=== PATIENT | male | born 1965 | race Caucasian/White ===

== ENCOUNTER → 2017-08-08 | Outpatient (CLI) | payer BC ==
--- NOTE | 2017-08-08 13:48 | PCVCIMAG ---
APPROVED REPORT Exam: Stress Echocardiogram Indication: Chest pain, Fam hx CAD, early repolarization EKG Patient Location: Echo lab Stress Nurse: Lesia Chavez RN Status: routine Ht: 6 ft 0 in HR: 88 bpm BP: 120/82 mmHg Rhythm: NSR Procedure The patient underwent an Exercise Stress Test using the Manish Protocol. Blood pressure, heart rate, and EKG were monitored. An Echocardiogram was performed by electronic organ technician in four stages in quad fashion. At peak stress, four selected images were obtained and placed side by side with resting images for comparison. Stress Test Details Stress Test: Exercise stress testing was performed using a Manish protocol. HR Resting HR: 88 bpmMax Heart Rate (APMHR): 167 bpm Max HR Achieved: 164 bpmTarget HR (85% APMHR): 141 bpm % of APMHR: 98 Recovery HR: 83 bpm HR response to stress: Normal HR response to stress BP Resting BP: 120/82 mmHg Max BP: 164/78 mmHg Recovery BP: 124/68 mmHg ECG Resting ECG: Sinus Rhythm Stress ECG: Sinus Rhythm ST Change: Normal Arrhythmia: isolated PVCs rarely Recovery ECG: Sinus Rhythm Recovery ST Change: Normal Recovery Arrhythmia: occasional PACs Clinical Reason for Termination: Maximal effort Exercise duration: 14 min 18 sec Highest Stage Achieved: Stage 5: 5.0 mph at 18% grade. Exercise capacity: 17.5 METs Overall Exercise Capacity for Age: Good Scale: Active Angina Score: None Pre-Stress Echo The resting Echocardiogram showed normal left ventricular contractility with an estimated Ejection Fraction of about %. Normal wall motion in all segments on baseline images. Post-Stress Echo The stress Echocardiogram showed normal left ventricular contractility with an estimated Ejection Fraction of about %. Normal augmentation of wall motion in all segments on post stress images. Clinical No clinical or ECG evidence for ischemia. Conclusion Clinical Response: Non-ischemic Exercise Capacity: Superior Stress ECG Response: Non-ischemic Stress Echo Images: Non-ischemic The left ventricle is normal in size and wall thickness in both the rest and stress images. Other Information Study Quality: Adequate <Conclusion> The left ventricle is normal in size and wall thickness in both the rest and stress images.
== END | disposition home or self-care (01) ==
LOC: PCVCIMAG 11:31
PROVIDERS: ATTEND Internal Medicine Cardiovascular Disease
DX: R07.9 Chest pain, unspecified (principal); E78.5 Hyperlipidemia, unspecified; R00.2 Palpitations; Z82.49 Family history of ischemic heart disease and other diseases of the circulatory system
CPT/HCPCS: 93325; 93351

== ENCOUNTER → 2019-01-13 | Outpatient (CLI) | payer BC ==
--- NOTE | 2019-01-14 09:47 | PCVCIMAG ---
APPROVED REPORT Study performed: 01/13/2019 14:52:18 EXAM: Comprehensive 2D, Doppler, and color-flow Echocardiogram Patient Location: Echo lab Status: routine BSA: 2.08 HR: 73 bpmBP: 132/86 mmHg Rhythm: Atrial Fibrillation Other Information Study Quality: Adequate Indications Atrial Fibrillation Palpitations 2D Dimensions IVSd: 10.46 (7-11mm) LVDd: 47.19 mm PWd: 11.03 (7-11mm)Ascending Ao: 30.96 (22-36mm) LVDs: 34.15 (25-40mm) Left Atrium: 45.94 (27-40mm) Aortic Root: 30.70 mm LV Single Plane 4CH: 56.24 % LV Single Plane 2CH: 57.59 % Biplane EF: 57.0 % Volumes Left Atrial Volume (Systole) Single Plane 4CH: 93.07 mLSingle Plane 2CH: 78.73 mL LA ESV Index: 43.00 mL/m2 Aortic Valve AoV Peak David.: 1.27 m/s AO Peak Gr.: 6.46 mmHgLVOT Max P.49 mmHg LVOT Max V: 1.06 m/s Mitral Valve E/A Ratio: 2.5 MV Decel. Time: 151.18 ms MV E Max David.: 0.73 m/s MV A David.: 0.29 m/s IVRT: 83.04 ms Pulmonary Valve PV Peak David.: 0.86 m/sPV Peak Gr.: 2.99 mmHg Tricuspid Valve TR Peak David.: 2.23 m/s TR Peak Gr.: 19.81 mmHg Left Ventricle The left ventricle is normal size. There is normal LV segmental wall motion. There is normal left ventricular wall thickness. Left ventricular systolic function is normal. The left ventricular ejection fraction is within the normal range. LVEF is 55-60%. This study is not technically sufficient to allow evaluation of the LV diastolic function due to atrial fibrillation. Right Ventricle The right ventricle is normal size. The right ventricular systolic function is normal. Atria Left atrium imild- moderately dilated. Right atrium is mild-moderately dilated. Aortic Valve The aortic valve is normal in structure. Mild aortic regurgitation. There is no aortic valvular stenosis. Mitral Valve The mitral valve is normal in structure. Mild mitral regurgitation. No evidence of mitral valve stenosis. Tricuspid Valve The tricuspid valve is normal in structure. Mild tricuspid regurgitation with PAP of 27 mmHg. Pulmonic Valve The pulmonary valve is normal in structure. Mild pulmonic regurgitation. Great Vessels The aortic root is normal in size. IVC is normal in size and collapses >50% with inspiration. Pericardium There is no pericardial effusion. There is no pleural effusion. <Conclusion> The left ventricle is normal size. LVEF is 55-60%. This study is not technically sufficient to allow evaluation of the LV diastolic function due to atrial fibrillation. The right ventricle is normal size. Left atrium imild- moderately dilated. Right atrium is mild-moderately dilated. Mild aortic regurgitation. Mild mitral regurgitation. Mild tricuspid regurgitation with PAP of 27 mmHg. The aortic root is normal in size. There is no pericardial effusion.
== END | disposition home or self-care (01) ==
LOC: PCVCIMAG 14:46
PROVIDERS: ATTEND Internal Medicine Cardiovascular Disease
DX: I08.3 Combined rheumatic disorders of mitral, aortic and tricuspid valves (principal); I48.91 Unspecified atrial fibrillation; R00.2 Palpitations; E78.00 Pure hypercholesterolemia, unspecified; R07.9 Chest pain, unspecified; Z82.49 Family history of ischemic heart disease and other diseases of the circulatory system
CPT/HCPCS: 93306